=== PATIENT | female | born 1945 | race Caucasian/White ===

== ENCOUNTER 2022-05-04 11:59 | Outpatient (CLI) | payer MEDICARE, SELFPAY ==
[2022-05-04 12:19] LABS: Hematocrit 39.8 % (37.0-47.0); Hemoglobin 13.1 g/dL (12.0-15.0)
[2022-05-04 12:34] LABS: Albumin Level 4.5 g/dL (3.5-5.1); Estimated Glomerular Filt Rate 40
--- NOTE | 2022-05-04 12:42 | ECG_ITS ---
Measurements Intervals [place] Rate: 72 P: 53 SC: 138 QRS: 38 QRSD: 86 T: 149 QT: 430 QTc: 472 Interpretive Statements SINUS RHYTHM WITH OCCASIONAL VENTRICULAR PREMATURE COMPLEXES ST DEVIATION AND MODERATE T-WAVE ABNORMALITY, CONSIDER ANTEROLATERAL ISCHEMIA [-0.1+ mV T WAVE IN V3-V6] NO PREVIOUS ECG AVAILABLE FOR COMPARISON Electronically Signed On 05-04-2022 15:32:45 DIRECTOR OF NUCLEAR MEDICINE by Moiz Roche M.D.
== END 2022-05-04 12:00 | disposition home or self-care (01) ==
PROVIDERS: PCP Family Medicine; Visit Provider Orthopaedic Surgery
DX: E78.5 Hyperlipidemia, unspecified (principal); M17.0 Bilateral primary osteoarthritis of knee
CPT/HCPCS: 82040; 82565; 85014; 85018; 93005

== ENCOUNTER 2022-05-06 14:15 | Outpatient (CLI) | payer MEDICARE, SELFPAY ==
--- NOTE | ~2022-05-06 | CT_ITS ---
EXAMINATION: CT LE LT wo con DATE: 05/06/2022 14:56 INDICATION: Unilateral osteoarthritis left knee for preoperative planning TECHNIQUE: High resolution computed tomography (CT) of the left lower extremity from the hip through the ankle was performed without intravenous contrast. Additional sagittal and coronal reconstructions were performed. Automated exposure control and iterative reconstruction technique were employed. The dose-length product was 1904.34 mGy-cm. COMPARISON: None FINDINGS: Mild hallux valgus. Otherwise normal bone alignment in the left lower limb and visualized pelvis. No fracture. Tricompartmental osteoarthritis at the left knee with moderate to severe joint space narrow ing in the medial and patellofemoral compartments, the former which could be underestimated on nonwei ghtbearing imaging. There is cortical regularity with mild subarticular cystlike changes along both t he weightbearing medial femoral condyle,, trochlea and patella. Small to moderate-sized marginal ossi fied to 3 compartments. Mild to moderate osteoarthritis at the left hip, first metatarsophalangeal an d lateral naviculocuneiform joints. Mild osteoarthritis at the left ankle and multiple additional lilia nts in the left foot. Small amount of enthesopathic ossification at the left ischial tuberosity. Mode rate diverticulosis along the visualized portion of the sigmoid colon without adjacent inflammatory s tranding to suggest diverticulitis. The uterus is not identified and has likely been surgically resec crescencio. No pathologically enlarged left pelvic or inguinal lymphadenopathy. No evident joint effusions i n the left lower limb. IMPRESSION: 1. Moderate to severe medial and patellofemoral compartment predominant tricompartmental osteoarthrit is at the left knee. Reviewed, dictated and finalized at location A. SETTER HELPER IMPRESSION: 1. Moderate to severe medial and patellofemoral compartment predominant tricomp artmental osteoarthritis at the left knee.
== END 2022-05-06 14:16 | disposition home or self-care (01) ==
PROVIDERS: PCP Family Medicine; Visit Provider Orthopaedic Surgery
DX: M17.12 Unilateral primary osteoarthritis, left knee (principal)
CPT/HCPCS: 73700

== ENCOUNTER 2022-06-13 12:13 | Outpatient (CLI) | payer MEDICARE, SELFPAY ==
[2022-06-13 14:03] LABS: Albumin Level 4.2 g/dL (3.5-5.1); Anion Gap 5 mmol/L (8-16); Blood Urea Nitrogen 22 mg/dL (7-17); Calcium 9.2 mg/dL (8.4-10.2); Carbon Dioxide 33 mmol/L (22-30); Chloride 103 mmol/L (98-107); Estimated Glomerular Filt Rate 54; Glucose 97 mg/dL (65-110); Phosphorus 4.2 mg/dL (2.5-4.5); Potassium 3.9 mmol/L (3.4-5.0); Sodium 141 mmol/L (137-145)
== END 2022-06-13 12:14 | disposition home or self-care (01) ==
LOC: ANHLAB 12:15
PROVIDERS: PCP Family Medicine; Visit Provider Internal Medicine Nephrology
DX: R79.89 Other specified abnormal findings of blood chemistry (principal)
CPT/HCPCS: 36415; 80069

== ENCOUNTER 2022-06-29 10:55 | Outpatient (CLI) | payer MEDICARE, SELFPAY ==
[2022-06-29 12:14] LABS: Basophils Percent Auto 0.4 % (0.2-1.2); Eosinophils Absolute Auto 0.1 K/mm3 (0-0.3); Eosinophils Percent Auto 1.1 % (0-4.4); Hematocrit 38.8 % (37.0-47.0); Hemoglobin 12.5 g/dL (12.0-15.0); Immature Granulocyte Absolute 0.03 K/mm3 (0.00-0.031); Immature Granulocyte Percent A 0.3 % (0-0.5); Lymphocytes Absolute Auto 3.16 K/mm3 (0.9-3.2); Lymphocytes Percent Auto 32.3 % (18.3-44.2); Mean Corpuscular HGB Conc 32.2 g/dl (32-36); Mean Corpuscular Hemoglobin 30.6 pg (26-34); Mean Corpuscular Volume 95.1 fl (80-100); Mean Platelet Volume 9.4 fl (7.4-10.4); Monocytes Percent Auto 10.5 % (2.6-8.5); Neutrophils Absolute Auto 5.4 K/mm3 (1.3-6.7); Neutrophils Percent Auto 55.4 % (45.5-73.1); Platelet Count Result 291 k/mm3 (150-375); Red Blood Count 4.08 M/mm3 (4.2-5.4); Red Cell Distribution Width 12.6 % (11.5-14.5); White Blood Count 9.8 K/mm3 (4.5-10.0)
[2022-06-29 12:27] LABS: Urine Cotinine NEGATIVE
== END 2022-06-29 10:56 | disposition home or self-care (01) ==
LOC: ANHSURGERY 10:59
PROVIDERS: PCP Family Medicine; Visit Provider Orthopaedic Surgery
DX: Z01.818 Encounter for other preprocedural examination (principal); M17.12 Unilateral primary osteoarthritis, left knee
CPT/HCPCS: 80307; 83036; 85025; 87081

== ENCOUNTER 2022-07-20 07:31 | Outpatient (CLI) | payer MEDICARE, SELFPAY ==
--- NOTE | ~2022-07-20 | NM_ITS ---
EXAMINATION: NM harsha stress w perfusion DATE: 07/20/2022 09:52 INDICATION: Other forms of dyspnea. TECHNIQUE: Rest images were obtained following intravenous administration of 10.8 mCi Tc99m tetrofosm in (Myoview). The patient was infused intravenously with Lexiscan (regadenoson). Then, 33.6 mCi Tc99m tetrofosmin (Myoview) was administered intravenously, and stress images were obtained. Data was conor nstructed into short axis and horizontal and vertical long axis SPECT images. Gated SPECT images were also obtained. COMPARISON: None. FINDINGS: There is no definite reversible or fixed perfusion abnormality to suggest ischemia or infar ction. There is no segmental wall motion abnormality. Left ventricular ejection fraction measures > 70%. IMPRESSION: 1. No definite ischemia or infarct. 2. Normal left ventricular ejection fraction measuring >70%. Reviewed, dictated and finalized at location A.
--- NOTE | 2022-07-20 08:25 | EST_ITS ---
Patient Info Name: Maureen Hawley Age: 77 years : 1945 Gender: Female Ht: 66 in Wt: 140 lbs BSA: 1.72 m2 HR: 68 bpm BP: 158 / 81 mmHg Heart Rhythm: Sinus Rhythm Exam Date: 07/20/2022 8:44 AM Exam Location: [facility] Stress Patient Status: Outpatient Admit Date: 07/20/2022 Staff Ordering Physician: Gray Montaño DO Attending Provider: Gray Montaño DO Exercise Technologist: Nataly Mullen CT Exercise Physician: Gray Montaño DO Exam Type: CA stress harsha w NM Study Info Indications Z01.810 - Encounter for preprocedural cardiovascular examination A regadenoson stress test was performed. Summary 1. 1. Negative lexiscan stress test for ischemic ST changes by ECG criteria. 2. 2. Baseline hypertension. 3. 3. Nuclear scan to follow and will be reported separately. Please correlate with it. 4. 4. Patient informed of the above results. Protocol: Lexiscan Stress ECG Details Stage: REST Duration (min): 1 min : 7 sec HR (bpm): 72 SBP (mmHg): 158 DBP (mmHg): 81 Stage: REST Duration (min): 12 min : 9 sec HR (bpm): 71 SBP (mmHg): 158 DBP (mmHg): 81 Stage: STAGE 1 Duration (min): 1 min : 0 sec HR (bpm): 102 SBP (mmHg): 170 DBP (mmHg): 73 Stage: RECOVERY Duration (min): 1 min : 0 sec HR (bpm): 107 SBP (mmHg): 170 DBP (mmHg): 73 Stage: RECOVERY Duration (min): 2 min : 0 sec HR (bpm): 99 SBP (mmHg): 170 DBP (mmHg): 73 Stage: RECOVERY Duration (min): 3 min : 0 sec HR (bpm): 97 SBP (mmHg): 174 DBP (mmHg): 76 Stage: RECOVERY Duration (min): 3 min : 4 sec HR (bpm): 95 SBP (mmHg): 174 DBP (mmHg): 76 Rest HR: 71 bpm Peak HR: 111 bpm Rest Sys BP: 158 mmHg Peak Sys BP: 174 mmHg Max Pred HR: 142 bpm % Max Pred HR: 78 % Target HR: 121 bpm Max RPP: 19,314 bpm*mmHg Termination Reason: Completed protocol Cardiac Symptoms: Shortness of breath Total Time: 1 min : 0 sec Rest Levin BP: 81 mmHg Peak Levin BP: 76 mmHg Total Dose: 0.4 mg Resting ECG Sinus rhythm, borderline ST-T wave in diffuse leads. Stress ECG No ST changes. Arrhythmias None. Report Signatures
== END 2022-07-20 07:32 | disposition home or self-care (01) ==
PROVIDERS: PCP Family Medicine; Visit Provider Internal Medicine Cardiovascular Disease
DX: R06.09 Other forms of dyspnea (principal)
CPT/HCPCS: 78452; 93017; A9502

== ENCOUNTER 2022-07-21 00:39 | Day surgery (SDC) | payer MEDICARE, SELFPAY ==
--- NOTE | 2022-06-29 10:57 | PC.NURSE ---
PRE-OP INSTRUCTIONS, PLEASE READ CAREFULLY Report to the Outpatient Waiting Room, entrance under the green pavilion located off [facility], at time _0830_ on date _07/21/22_. Planned Procedure Time: _1030_. PACK A SMALL OVERNIGHT BAG AND LEAVE IN THE CAR ALONG WITH YOUR WALKER Time changes happen often and if your time is changed the preop area will call you the afternoon before. - You and your visitor will be asked to self-screen and do not enter if you have any COVID symptoms. - A mask is optional within the hospital at this time. -VISITING HOURS 8AM-8PM Patients may have clear liquids (water, carbonated beverages, clear teas, apple juice) until 3 hours prior to surgery (0730 AM) with a maximum of 20 ounces. - No food from midnight until time of surgery Take the following medications with a SIP of water the morning of surgery: _UBROGEPANT IF NEEDED_ DO NOT STOP ANY OF YOUR OTHER PRESCRIPTION MEDICATIONS PRIOR TO SURGERY ?EXCEPT THE FOLLOWING Medications to discontinue per ANESTHESIA - _MULTIVITAMIN 3 DAYS PRIOR TO SURGERY, Date to take last dose 07/17/22 Please no make-up, nail guamanian, hairspray, perfume, deodorant, or body powder the day of surgery. No jewelry (including any body piercings) or valuables the day of surgery, leave them at home. Please take a shower or bath the night before, or the morning of, surgery with an antibacterial soap. Wear comfortable, loose fitting clothing. - Jewelry must be removed prior to entering the operating room. Rings and piercings that are not removed may be cut off. - The hospital will not accept responsibility for valuables. - Please leave all valuables, including medications, at home the day of surgery. If you are going home after surgery, a licensed independent driver must drive you home. - NO public transportation without another adult if you receive anesthesia. - We recommend that an adult stay with you for 24 hours following discharge. - We also recommend that you do not drive, make important decision, drink alcoholic beverages, or take any drugs that were not prescribed by your health care provider for at least 24 hours after your discharge time. Follow any additional instructions given to you from your surgeon. [facility] LEVEL If you or anyone in your household have experienced Covid symptoms in the past week, please notify your surgeon or the nurse liaison at the phone number below for possible testing. Instructions given to _PATIENT_and asked if any additional questions and then verbalized understanding. Patient advised to call surgeon office or pre surgery nurse liaison [phone] if any additional questions.
[2022-06-29 11:15] VITALS: BP 142/64; PULSE 80; RESP 18; TEMP 36.6; O2SAT 99; BMI 23.3
[2022-07-21] VITALS (16 sets, daily range): BP systolic 102–130; BP diastolic 5–60; PULSE 64–92; RESP 10–20; TEMP 35.8–36.4; O2SAT 93–100
--- NOTE | ~2022-07-21 | XR_ITS ---
Left Knee Technique: Portable AP and crosstable lateral views Clinical History: Status post TKR Findings: Patient is status post total knee replacement. Orthopedic hardware alignment appears anatom ic. No hardware complication is evident. Subcutaneous emphysema and swelling is likely postoperative in nature. No acute osseous fracture is seen. Impression: Status post total knee replacement, without evidence of hardware complication. Reviewed, dictated and finalized at location . Impression: Status post total knee replacement, without evidence of hardware complication.
--- NOTE | 2022-07-21 07:21 | WPDHPUPDATE1 ---
History and Physical Update Update Date/Time: 07/21/22 07:21 History and Physical has been reviewed, including an updated exam of the patient. There are NO changes in the patient's condition. Risks, benefits, and alternatives have been discussed and questions answered. Patient agrees to proceed with procedure.
[2022-07-21] MEDS: ACETAMINOPHEN 500 MG TABLET 1000 MG PO ×3 (08:44→19:57)
[2022-07-21] MEDS: LACTATED RINGERS 1,000 ML 30 ML IV CONT ×2 (08:45→12:03)
[2022-07-21] MEDS: TRANEXAMIC ACID 1,000MG/ISO100 1,000 MG/100 ML BAG 200 MG IVPB (09:16)
--- NOTE | 2022-07-21 09:22 | WPDANESEPPF ---
Anes - Initial Pre Proc Eval Procedure: Operation Date: 07/21/22 10:30 Proposed Procedures p Left Custom Total Knee Arthroplasty - Bud Dalton MD Date/Time: 07/21/22 09:22 Surgeon: Bud Dalton MD Pre Op Diagnosis: primary OA Left Knee Patient Data Age: 77 Gender: F Height: 1.68 m Weight: 65.5 kg Last Vital Signs Temp 36.6 C 06/29/22 11:15 Pulse 80 06/29/22 11:15 Resp 18 06/29/22 11:15 BP 142/64 H 06/29/22 11:15 Pulse Ox 99 06/29/22 11:15 O2 Del Method Room Air 06/29/22 11:15 Allergies Allergy/AdvReac Type Severity Reaction Status Date / Time Sulfa (Sulfonamide Allergy Unknown SWELLING Verified 07/11/22 10:33 Antibiotics) OF THE THROAT levofloxacin Allergy Joint Pain Verified 07/11/22 10:33 & KIDNEY ISSUES prednisone Allergy Palpitation Verified 07/11/22 10:33 s Home Medications Medication Instructions Recorded Confirmed Type atorvastatin 10 mg tablet 5 mg PO DAILY 05/20/20 07/21/22 History calcium carbonate 600 mg calcium 600 mg PO DAILY 05/04/22 07/21/22 History (1,500 mg) tablet cholecalciferol (vitamin D3) 10 10 mcg PO DAILY 05/04/22 07/21/22 History mcg (400 unit) capsule multivit with 1 tablet PO DAILY 05/04/22 07/21/22 History kzibmkte-cexb-MW-lutein 8 mg iron-400 mcg-300 mcg tablet (Centrum Silver Women) ubrogepant 50 mg tablet (Ubrelvy) 50 mg PO ONCE PRN Migraine Headache 05/04/22 07/11/22 History polyethylene glycol 3350 17 gram 17 g PO DAILY 06/29/22 07/21/22 History oral powder packet (Miralax) Patient hx anesthesia problems: none Family hx anesthesia problems: none Results Review: All pre-operative results and documents have been reviewed as part of the pre-operative evaluation. [facility] Past Medical History Medical History Acute medial meniscus tear of left knee Arthritis of left knee Hyperlipidemia Partial tear of left rotator cuff Surgical History Surgical History H/O basal cell carcinoma excision (~10/04/12) Pelvic prolapse (03/26/15) Family History Family History Father Cancer Sibling Cancer Mother No problems noted. Social History Social History Smoking status: Never smoker Second hand tobacco smoke exposure: No Additional smoking assessment comments: PT DENIES ALL FORMS OF TOBACCO USE Alcohol intake: never Substance use: never Substance use type: does not use Lack of Transportation: No Lack of Food: Never True Current Housing: I Have Housing Concerned About Future Housing: No Difficulty Paying Gas/Electric Bills: No Difficulty Paying for Meds: No Currently Unemployed: No Education: High School Diploma/GED Difficulty w/ Childcare or Family Care: No Living arrangements: with family Gender identity (if verbalized by the patient): Female Spiritual care concerns: No Anes - Eval Final PreProcedure Day of Procedure 07/21/22 09:22 Patient weight: normal Heart: regular rate and rhythm Lungs: clear to auscultation Airway: Mallampati scale class II Neurological: alert and oriented Last oral intake: >/= 8 hours ASA classification: II Emergent: no Anesthetic plan: proceed Anesthesia type and monitoring: general LMA and standard monitoring Results Review: All pre-operative results and documents have been reviewed as part of the pre-operative evaluation. Informed Consent: The patient's anesthetic plan and its attendant risks and benefits were discussed with the patient/family/POA. Questions were solicited and answers provided to the satisfaction of the patient/family/POA.
--- NOTE | 2022-07-21 09:44 | PHAR ---
DEXAMETHASONE REMOVED FROM PYXIS, PREDNISONE ALLERGY (PALPITATIONS). TALKED TO ALLISON ON PRE-OP & WAS TOLD DR YUNG IS AWARE OF INTERACTION & THEY HAVE IT UNDER CONTROL .
--- NOTE | 2022-07-21 09:50 | WPDANESPNB ---
Anes - Peripheral Nerve Block Date/Time: 07/21/22 09:50 I have discussed with the patient/family/POA the placement of a peripheral nerve block for post-operative pain management, including associated risks, benefits, complications, and side effects. Alternative methods of post-operative analgesia were detailed. Questions were solicited and answers provided to the satisfaction of the patient/family/POA. Time-Out: A pre-procedural Time-Out was completed immediately before starting the procedure and confirmed: Patient Identification, Site, Procedure, Patient Position and the Availability of Requisite Equipment. Clinical Indications: Acute post-operative pain management requested by the operative surgeon. Nerve Block Insertion Note Anes-nerve block: adductor canal left Patient position: supine Skin prep: chlorhexidine Needle: 22 gauge, stimulating, insulated echogenic needle. Needle length: 80 mm Technique: ultrasound Technique comment: mid 1mg fent 100mcg Injectate: bupivacaine 0.5% with epi 5 mcg/ml (30ml no epi) and dexamethasone (mg) (4) Observations: tolerated well Complications: none Procedure start time:: 920 Procedure end time:: 927
[2022-07-21] MEDS: ceFAZolin 2 GM/D5W 50 ML 2 GM/50 ML BAG IVPB ×2 (09:54→18:06)
--- NOTE | 2022-07-21 12:18 | SUR.PHASEI ---
xrays to left knee done.
[2022-07-21] MEDS: fentaNYL CITRATE INJ (*CRX) 100 MCG/2 ML VIAL 25 MCG IV PUSH ×4 (12:52→13:22)
--- NOTE | 2022-07-21 14:35 | W.PM.PROC2 ---
Procedure Note - Detailed Date of Procedure 07/21/22 Pre-op Diagnosis primary OA Left Knee Post-op Diagnosis Same Procedure Performed Total knee arthroplasty, left Surgeon Bud Dalton MD Superintendent Stations Skye Rowan PA-C Anesthesia General and Regional (Subsartorial block.) Findings Good bone quality. Moderate medial release (preoperative varus thrust). Description of Procedure Preoperative antibiotics were given. The limb was prepped and draped in the usual sterile fashion with a well-padded tourniquet high on the thigh. The limb was exsanguinated and the tourniquet inflated to 300 mmHg. A longitudinal incision was created just medial to the patella. A trivector approach to the knee was performed. Arthrotomy was taken down through the joint capsule. No significant releases were initially taken. The femur was exposed and the F1 jig was applied. The coring tool was used to remove the cartilage for the F2 jig to sit flush with the bone. The jig was pinned and the distal cut carefully taken. Caliper measurements confirmed appropriate bony resections according to the preoperative templated plan. The F4 cutting jig for the femur was applied, at the standard rotation. The AP and anterior chamfer cuts were taken. The F5 jig was applied and the posterior chamfer cuts were taken. The tibia was prepared using the T1 jig, after removing cartilage for the jig contact points. Proper alignment was checked with the alignment sasha. The tibia was cut using the T1u guide. Gap balancing was performed. Gap measurements were taken and the knee was trialed. Excellent alignment and soft tissue balancing was confirmed. The posterior cruciate ligament was recessed along the proximal tibia. The patella was cut for resurfacing. Three lug holes were drilled. Meniscal remnants were removed. The trial components were assembled. Excellent range of motion and proper soft tissue balancing were confirmed throughout the full range of motion. Patellar tracking was excellent. The knee was copiously irrigated periodically throughout the procedure. The real implants were cemented into position. Excess cement was carefully removed. The wound was closed in layers with interrupted #1 Vicryl suture, #2 strata fix suture, 2-0 strata fix suture, 3-0 strata fix suture. Steri-Strips placed on the skin with the knee flexed. Sterile bulky dressing applied. The patient was brought to the recovery room in stable condition. There were no complications. Physician general surgery physician assistant, Skye Rowan PA-C, required for surgery; including patient positioning, draping, tissue retraction, maintaining instrument position, wound closure, and dressing placement. Implants Conformis Imprint total knee arthroplasty. Cemented. Cruciate retaining. 7 mm insert. 35 mm round patella. Estimated Blood Loss -50.0 Drains No Complications No immediate complications Condition Stable Disposition PACU [facility] Billing Surgery - Charge Forward: Surgery Billing
[2022-07-21] MEDS: CYCLOBENZAPRINE HCL 10 MG TABLET PO (15:20)
[2022-07-21] MEDS: SODIUM CHLORIDE 0.9% IV 1,000 ML 125 ML IV CONT (15:20)
--- NOTE | 2022-07-21 17:06 | ADMGEN ---
This patient, Maureen Hawley, was admitted to [address] [place] [address] Room 300-01 at 1410. Patient/family oriented to hospital policies and general routines including ID bracelet, bed and alarms, visiting hours, pain management, procedures, bathroom and other care routines, personal items, smoking policy, room service/diet, and visiting hours. Information on how to activate the Rapid Response Team has been discussed. Patient/Family are encouraged to report perceived risks to care and to ask questions if they do not understand what they are told or what they should do.
[2022-07-21] MEDS: ASPIRIN 81 MG ENTERIC TABLET PO (18:06)
[2022-07-21] MEDS: MELOXICAM 7.5 MG TABLET PO (18:06)
[2022-07-21] MEDS: SENNA/DOCUSATE SODIUM TABLET 2 TAB PO (18:06)
[2022-07-21] MEDS: ATORVASTATIN 5 MG TABLET PO (19:57)
[2022-07-21] MEDS: FAMOTIDINE 20 MG TABLET PO (19:58)
[2022-07-22] MEDS: ceFAZolin 2 GM/D5W 50 ML 2 GM/50 ML BAG IVPB ×2 (02:15→09:00)
[2022-07-22] MEDS: ACETAMINOPHEN 500 MG TABLET 1000 MG PO ×2 (02:46→08:59)
[2022-07-22] MEDS: CYCLOBENZAPRINE HCL 10 MG TABLET PO (02:49)
[2022-07-22 03:52] VITALS: BP 116/53; PULSE 66; RESP 16; TEMP 36.2; O2SAT 99
[2022-07-22] MEDS: oxyCODONE HCL (*CRX) 5 MG TAB IR 10 MG PO (06:27)
[2022-07-22 06:28] LABS: Basophils Percent Auto 0.2 % (0.2-1.2); Eosinophils Percent Auto 0.1 % (0-4.4); Hematocrit 31.3 % (37.0-47.0); Hemoglobin 10.4 g/dL (12.0-15.0); Immature Granulocyte Absolute 0.11 K/mm3 (0.00-0.031); Immature Granulocyte Percent A 0.6 % (0-0.5); Lymphocytes Absolute Auto 1.97 K/mm3 (0.9-3.2); Lymphocytes Percent Auto 10.9 % (18.3-44.2); Mean Corpuscular HGB Conc 33.2 g/dl (32-36); Mean Corpuscular Hemoglobin 30.7 pg (26-34); Mean Corpuscular Volume 92.3 fl (80-100); Mean Platelet Volume 9.8 fl (7.4-10.4); Monocytes Percent Auto 10.8 % (2.6-8.5); Neutrophils Percent Auto 77.4 % (45.5-73.1); Platelet Count Result 242 k/mm3 (150-375); Red Blood Count 3.39 M/mm3 (4.2-5.4); Red Cell Distribution Width 12.4 % (11.5-14.5); White Blood Count 18.1 K/mm3 (4.5-10.0)
[2022-07-22 06:43] LABS: Anion Gap 5 mmol/L (8-16); Blood Urea Nitrogen 17 mg/dL (7-17); Calcium 8.1 mg/dL (8.4-10.2); Carbon Dioxide 28 mmol/L (22-30); Chloride 105 mmol/L (98-107); Estimated CRCL calculation 35 ml/min; Estimated Glomerular Filt Rate 48; Glucose 107 mg/dL (65-110); Potassium 3.9 mmol/L (3.4-5.0); Sodium 138 mmol/L (137-145)
[2022-07-22 07:55] VITALS: BP 109/49; PULSE 72; RESP 20; TEMP 36.7; O2SAT 100
[2022-07-22] MEDS: ASPIRIN 81 MG ENTERIC TABLET PO (08:59)
[2022-07-22] MEDS: MELOXICAM 7.5 MG TABLET PO (08:59)
[2022-07-22] MEDS: SENNA/DOCUSATE SODIUM TABLET 2 TAB PO (08:59)
[2022-07-22] MEDS: polyethylene glycoL 3350 17 GM POWD.PACK PO (08:59)
[2022-07-22] MEDS: FAMOTIDINE 20 MG TABLET PO (08:59)
--- NOTE | 2022-07-22 11:17 | PM.DS ---
DS: Admitting Diagnosis Discharge Date 07/22/22 Admitting Diagnosis OA knee Left DS: Discharge Diagnosis Discharge Diagnosis (1) Status post total left knee replacement: Code(s): Z96.652 - Presence of left artificial knee joint Status: Acute Assessment and Plan: Postop day 1: Left total knee arthroplasty. Patient tolerated procedure well. No complications. Pain manageable with pain medication. No numbness or tingling. She does have an elevated white count post surgically. She is not felling sick or having any associated symptoms. Likely just a response to surgery. Will send an extended antibiotic to her pharmacy. We had a lengthy discussion regarding postoperative wound care, limitations, expectations, and exercises. Patient shows good understanding. She has had initial physical therapy and is tolerating it well. DVT prophylaxis: 81 mg baby aspirin b.i.d. for 14 days. Pain medication: Percocet. Prednisone. Meloxicam. Antibiotic: (extended due to increased white count) Keflex. Patient has followup appointment with Dr. Dalton in 3 weeks. DS: Summary Hospital Course Reason for hospitalization: Total knee arthroplasty Hospital Course: Patient tolerated procedure well. Has had initial PT/OT. Status at Discharge Functional status at discharge: uses cane/walker Overall status at discharge: patient is progressing back to baseline Time Spent with Patient Time attestation: Total time spent providing and/or coordinating discharge services: Exam Narrative: 77-year-old normal weight female. Resting comfortably in chair. Alert and oriented x3. No acute distress. Wearing compression socks bilaterally. Dressing intact with small (pea sized) area of dried bloody drainage on Mepilex. Moderate swelling. No ecchymosis. No erythema. No hematoma. Range of motion limited due to pain. Calf nontender. Neurologic status intact. No varicosities. Distal pulses palpable. DS: Data Data Completed and Pending Labs on day of discharge: Labs from last 24 hours 07/22/22 06:09 WBC 18.1 H RBC 3.39 L Hgb 10.4 L Hct 31.3 L MCV 92.3 MCH 30.7 MCHC 33.2 RDW 12.4 Plt Count 242 MPV 9.8 Immature Gran % (Auto) 0.6 H Neut % (Auto) 77.4 H Lymph % (Auto) 10.9 L Hunt % (Auto) 10.8 H Eos % (Auto) 0.1 Baso % (Auto) 0.2 Lymph # (Auto) 1.97 Hunt # (Auto) 2.0 H Eos # (Auto) 0.0 Baso # (Auto) 0.0 Abs Immat Gran (auto) 0.11 H Absolute Neuts (auto) 14.0 H Absolute Nucleated RBC 0.0 Nucleated RBC % 0.0 Sodium 138 Potassium 3.9 Chloride 105 Carbon Dioxide 28 Anion Gap 5 L BUN 17 Creatinine 1.10 H Estim Creat Clear Calc 35 Estimated GFR 48 L Glucose 107 Calcium 8.1 L Discharge Plan Discharge Patient Disposition: Home, Self-Care Discharge Instructions: See green instruction sheets Stand Alone Forms: General Discharge Instructions Follow-up/Referrals: Skye Rowan PA [Physician Boarding Specialist] - Discharge Medications: New meloxicam 15 mg tablet 15 mg PO DAILY Qty: 30 0RF Rx Instructions: Cut in half. Take 1/2 in morning and 1/2 at night. Take with food. Stop if stomach upset. aspirin 81 mg tablet,delayed release (DR/EC) 81 mg PO BID 14 Days Qty: 28 0RF oxycodone-acetaminophen 5-325 mg tablet 1 - 2 tablet PO Q4-6H MDD 6 PRN (Reason: pain) Qty: 30 0RF cephalexin 500 mg capsule 500 mg PO BID 10 Days Qty: 20 0RF Rx Instructions: Take twice a day for 10 days. Continued atorvastatin 10 mg tablet 5 mg PO DAILY Patient Comments: HS calcium carbonate 600 mg calcium (1,500 mg) tablet 600 mg PO DAILY cholecalciferol (vitamin D3) 10 mcg (400 unit) capsule 10 mcg PO DAILY Centrum Silver Women 8 mg iron-400 mcg-300 mcg tablet 1 tablet PO DAILY Ubrelvy 50 mg tablet 50 mg PO ONCE PRN (Reason: Migraine Headache) Rx Instructions: as a single dose; may repeat o
[2022-07-22 11:52] VITALS: BP 106/44; PULSE 74; RESP 20; TEMP 36.7; O2SAT 100
[2022-07-22] MEDS: oxyCODONE HCL (*CRX) 5 MG TAB IR PO (12:41)
== END 2022-07-22 12:40 | disposition home or self-care (01) ==
LOC: ANHSURGERY 09:40 → ANH3MEDSUR 14:34
PROVIDERS: Physician Assistant Surgical; PCP Family Medicine; Visit Provider Orthopaedic Surgery
PROC: (CPT 27447; principal; 2022-07-21 10:30)
DX: M17.12 Unilateral primary osteoarthritis, left knee (principal); G89.18 Other acute postprocedural pain; E78.5 Hyperlipidemia, unspecified
CPT/HCPCS: 27447; 64447; 36415; 73560; 80048; 80307; 83036; 85025; 86850; 86900; 86901; 87081; 97110; 97161; 97165; 97530; 97535; A9270; C1713; C1776; J0171; J0690; J1100; J1885; J2250; J2270; J2405; J2704; J2795; J3010; J7030; J7120

== ENCOUNTER 2023-01-27 11:54 | Outpatient (CLI) | payer MEDICARE, SELFPAY ==
[2023-01-27 12:35] LABS: Creatinine Urine 54.3 mg/dL; Total Protein Urine Random 13 mg/dL; Ur Ttl Prot Creatinine Ratio 0.24 mg/mg (0-0.20)
[2023-01-27 12:37] LABS: Albumin Level 4.3 g/dL (3.5-5.1); Anion Gap 9 mmol/L (8-16); Blood Urea Nitrogen 23 mg/dL (7-17); Carbon Dioxide 28 mmol/L (22-30); Chloride 100 mmol/L (98-107); Estimated Glomerular Filt Rate 43; Glucose 97 mg/dL (65-110); Phosphorus 3.9 mg/dL (2.5-4.5); Potassium 4.3 mmol/L (3.4-5.0); Sodium 137 mmol/L (137-145)
[2023-01-27 12:46] LABS: Parathyroid Intact 42.1 pg/mL (7.5-53.5)
[2023-01-27 12:57] LABS: Vitamin D 25 Hydroxy 63.3 ng/mL
== END 2023-01-27 11:55 | disposition home or self-care (01) ==
LOC: ANHLAB 11:56
PROVIDERS: PCP Family Medicine; Visit Provider Internal Medicine Nephrology
DX: E55.9 Vitamin D deficiency, unspecified (principal); N25.81 Secondary hyperparathyroidism of renal origin; N18.31 Chronic kidney disease, stage 3a
CPT/HCPCS: 36415; 80069; 82306; 82570; 83970; 84156

== ENCOUNTER 2023-03-28 11:03 | Outpatient (CLI) | payer MEDICARE, SELFPAY ==
--- NOTE | ~2023-03-28 | US_ITS ---
Renal-Bladder ultrasound Clinical History: Left kidney pain Technique: Real-time sonographic imaging of the kidneys and urinary bladder was performed. Findings: The right kidney measures 8.7 cm in length and the left kidney measures 9.3 cm. There is no hydronephrosis or renal calculus identified. Renal cortical echogenicity is within normal limits. No renal mass lesion is identified. The urinary bladder is moderately distended at the time of this exam. No intraluminal echoes are iden tified. No abnormal wall thickening is seen. Impression: Unremarkable ultrasound of the kidneys and urinary bladder. Reviewed, dictated and finalized at location M. BOOTH OPERATOR Impression: Unremarkable ultrasound of the kidneys and urinary bladder.
== END 2023-03-28 11:04 | disposition home or self-care (01) ==
PROVIDERS: Visit Provider Internal Medicine Nephrology
DX: R10.9 Unspecified abdominal pain (principal)
CPT/HCPCS: 76775

== ENCOUNTER 2023-05-12 09:57 | Outpatient (CLI) | payer MEDICARE, SELFPAY ==
--- NOTE | ~2023-05-12 | XR_ITS ---
AP view of the pelvis and AP and lateral views of the bilateral hips Clinical history: Pain Findings: No acute fracture or dislocation is seen. Osseous alignment is anatomic. Bilateral hip and SI joint spaces are preserved. Soft tissues are unremarkable. Impression: No significant abnormality is seen. Reviewed, dictated and finalized at [facility]. [place] MEDIA STRATEGIST Impression: No significant abnormality is seen.
== END 2023-05-12 09:58 | disposition home or self-care (01) ==
PROVIDERS: Visit Provider Orthopaedic Surgery
DX: M25.551 Pain in right hip (principal); M25.552 Pain in left hip
CPT/HCPCS: 73521

== ENCOUNTER 2023-07-25 12:04 | Outpatient (CLI) | payer MEDICARE, SELFPAY ==
--- NOTE | ~2023-07-25 | MR_ITS ---
EXAMINATION: MR lumbar spine wo con DATE: 07/25/2023 13:20 INDICATION: Low back pain. TECHNIQUE: Magnetic resonance imaging (MRI) of the lumbar spine was performed without intravenous con trast. Sequences included sagittal T2-weighted FSE, sagittal T2-weighted FS FSE, sagittal T1-weighted FSE, and axial T2-weighted FSE. COMPARISON: None FINDINGS: There is 19 degrees levoscoliosis of lumbar spine. There is 4 mm retrolisthesis of T12 on L 1 and 4 mm anterolisthesis of L4 on L5. There is mild chronic anterior wedging of T12 and T11 vertebr al bodies. There is moderately decreased disc height at T11-T12, severely decreased disc height at T1 2-L1, mildly decreased disc height at L1-L2, L2-L3, L3-L4, and L4-L5, and severely decreased disc hei ght at L5-S1. The distal spinal cord signal intensity is normal. The conus medullaris is at L1. The f ollowing disc levels are specifically discussed: L1-L2: The disc is bulging. There is severe bilateral facet joint osteoarthritis. There is mild bilat eral neural foraminal stenosis. There is mild central canal stenosis. L2-L3: The disc is bulging and has an annular fissure. There is severe bilateral facet joint osteoart hritis. There is mild bilateral neural foraminal stenosis. There is mild central canal stenosis. L3-L4: The disc is bulging and has an annular fissure. There is severe bilateral facet joint osteoart hritis. There is mild bilateral neural foraminal stenosis. There is mild central canal stenosis. L4-L5: The disc is bulging and has an annular fissure. There is severe bilateral facet joint osteoart hritis. There is mild bilateral neural foraminal stenosis. There is mild central canal stenosis. L5-S1: The disc is bulging and has an annular fissure. There is severe bilateral facet joint osteoart hritis. There is mild bilateral neural foraminal stenosis. There is mild central canal stenosis. IMPRESSION: 1. Severe lumbar and lower thoracic spondylosis. 2. Lumbar levoscoliosis. Reviewed, dictated and finalized at location A.
== END 2023-07-25 12:05 | disposition home or self-care (01) ==
DX: M43.06 Spondylolysis, lumbar region (principal); M43.04 Spondylolysis, thoracic region; M41.86 Other forms of scoliosis, lumbar region; G89.29 Other chronic pain
CPT/HCPCS: 72148